=== PATIENT | female | born 1980 | race Caucasian/White ===

== ENCOUNTER 2024-05-12 08:01 | Outpatient (AMB) | payer OTHER, SELFPAY ==
--- OUTSIDE RECORDS SUMMARY | 2024-05-12 08:10 | XMS_ITS | Data Portability ---
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 She reports that about 2 weeks ago she developed a rash from contact with poison sandy. She was placed on prednisone 40mg daily for 7 days. She reports her rash improved and the 24hrs after stopping the prednisone it returned and was worse than before. She reports significant itching Exam: Pt is A/Ox3, non-toxic appearing, VSS, HRR, resp reg and unlabored on RA, lungs CTA bilat. pt noted to have extensive uticaria to bilat arms, torso and face. DDx considered, but not limited to: Rebound reaction: likely given history of sx and extensive uticaria noted to face, arms and torso cellulitis: unlikely, sx more consistent with contact dermatitis to poison sandy shingles: unlikely as rash is bilat and does not follow a dermatoma anaphalaxis: unlikely as pt's VSS, no angioedema noted, airway patent and intact Work up/Results: no further work up indicated at this time. Plan/Discussion: Pt appears to be having a rebound allergic reaction since coming off of the prednisone for significant contact dermatitis r/t poison sandy. Pt placed on a prednisone brooke and advised to use benadryl and pepcid to help as well. She has both at home, so orders not sent to the pharmacy. Patients PCP contacted and updated on patient status. Patient verbalized understanding of discharge instructions and when to follow up with PCP/911/ED as needed. Patient in agreement with current plan and treatment. Time On Scene with Patient: 00:17:11 anoop Not available 10/30/2019 17:40:51 Plan of Treatment Reminders Order Date Submit Date Provider Last Modified By Organization Details Last Modified Time Details Appointments None recorded. Lab None recorded. Referral None recorded. Procedures None recorded. Surgeries None recorded. Imaging None recorded. Medication Orders prednisone 10 mg tablet 2019 020 INTERFACE [id number], [address] , [place], [address], 0 15:53:41 Patient TargetsNo targets recorded. Patient Instructions Encounter Date Encounter Id Patient Instructions Last Modified By Organization Details Last Modified Time 10/30/2019 [id number] Thank you for yo ur visit with [facility] today. We cannot always find the exact cause of your symptoms during your initial visit. Please follow up with your primary care provider or specialist as needed to be rechecked or seek medical attention if your symptoms do not go away or get worse. If you develop any new or worsening symptoms and need after hours care, please go to nearest ER and/or call 911. If you have additional concerns or develop a change in your condition between 8am-10pm, please call [facility] at [phone] to help navigate your care. Please seek care or call your primary provider if the rash: 1. Worsens 2. Lasts longer than one week 3. Shows signs of local infection (redness, oozing, or swelling) 4. Occurs together with fever, chills, swollen glands, or other symptoms of infection 5. Looks dark purple or spotted 6. Occurs together with symptoms that suggest autoimmune disorder (recurring fever, malaise, fatigue, unexplained weight loss, or joint swelling) If you have additional concerns or develop a change in your condition between 8am-10pm, please call [facility] at [phone] to help navigate your care. anoop Not available 10/30/2019 15:54:32 Reason for Referral None Reported. Problems Name Problem SNOMED Code Status Onset Date Resolution Date Notes Provider Name and Address Organization Details Recorded Time Migraine [id number] Active 020 LESLEY DONG NP [address] [facility] [place], [place], [address] , [place] - [facility] 0 15:43:47 Problem Notes None recorded. Medical Equipment None Reported. Allergies No known drug allergies Medications Name Sig Start Date Stop Date Status Note LastModified by Organization Details LastModified Time cyclobenzap rine 10 mg tablet 10/29 completed Not Available Not Available Not Available prednisone 10 mg tablet 60mg daily for 3 days, 50mg daily for 3 days, 40mg daily for 3 days, 30mg daily for 3 days, 20mg daily for 3 days, 10mg daily for 3 days active Not Available Not Available No t Available sumatriptan 100 mg tablet active Not Available Not Available Not Available prednisone 20 mg tablet 10/29 completed Not Available Not Available Not Available etonogestre l 0.12 mg-ethinyl estradiol 0.015 mg/24 hr vaginal ring INSERT 1 RING VAGINALLY AND LEAVE IN PLACE FOR 3 WEEKS. TO BE USED CONTINUOU SLY active Not Available Not Available No t Available Vitals Date Recorded Respiratory rate Oxygen saturation Oxygen saturation in Arterial blood by Pulse oximetry Body temperature Heart rate Systolic blood pressure Diastolic blood pressure Provider Name and Address Organization Details Last Updated DateTime 0 18 /min 98 % 98 % 96.8 [degF] 110 /min 148 mm[Hg] 92 mm[Hg] Not Available [facility] 0 15:46:22 Social History Question Answer Notes LastModified by Organizat ion Details LastModified Time Tobacco Smoking Status Never Smoker LESLEY DONG, [address] [place], [address], [place] - [facility] 10/30/2019 15:44:14 Do You Have An Advance Directive? Yes Information not available 10/30/2019 What Is Your Code Status? Full Code Information not available 10/30/2019 Excessive Alcohol Or Drug Use No Information not available 10/30/2019 Sex: Unknown Functional Status None recorded. Mental Status None recorded. Family History Relationship Description Onset Age of this Age Resolved Age Notes LastModified by Organization Details LastModified Time Father Hypertensive disorder [email or web address] Not available 10/29 15:44:54 Medical History Condition Response Diabetes N Coronary Artery Disease N High Cholesterol N Cancer N Pulmonary Embolism N Stroke N Hypertension N Asthma N COPD N Depression N Kidney Disease N Gynecological HistoryNo gynecological history recorded. Obstetrics History GPAL:G 0 P 0 0 0 0 Past Encounters Encounter ID Performer Location Encounter Start Date Encounter Closed Date Diagnosis/Indication Diagnosis SNOMED-CT Code Diagnosis ICD10 Code Diagnosis Note [id number] LESLEY DONG NP [facility] [address] [place] [address] 10/30/2019 15:42:22 10/30/2019 17:50:59 Contact dermatitis caused by urushiol from [place] poison sandy 900339519 L25.5 Health Concerns Section Related Observation LastModified by Organization Detai ls LastModified Time None Recorded Concern Status LastModified by Organization Details LastModified Time None Recorded Advance Directives Directive Y: Payers Encounter Date Sequence Insurance Name Policy Number Policy Lindquist Covered Member ID Lindquist Member ID Guarantor Name 10/30/2019 1 [employer] [id number] Lesley Sparrow [id number] Lesley Sparrow Notes Date Note Type Note Provider Name and Address Organization Details Recorded Time 10/30/2019 text/html Pt reports she got posion sandy about 2 weeks ago. Was given 40mg of prednisone daily for 7 days. About 24hrs after stopping the prednisone she ended up with a worse rash all over her body that is extreamly itchy. She has washed everything that came in contact with the posion sandy, no one else in the house has it. Pets in the home have been bathed along with all of the pet's bedding. LESLEY DONG NP [address], [place], [address], [place] - [facility] 10/30/2019 17:42:21 OBGyn Episode No OBEpisode recorded.
[2024-05-12 08:12] VITALS: BP 140/96; PULSE 92; O2SAT 98
--- NOTE | 2024-05-12 08:12 | AM.OFFWIN_ITS ---
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 Patient Tobacco Use Status: Never used Tobacco Allergies No Known Allergies Allergy (Verified 05/12/24 08:19) Do you need a note to return to daycare/school/sports/work: No HPI HPI Comments 2 History of Present Illness0 Details 43 y/o female patient who presents to [facility] walk in clinic with c/o Neck Stiffness x 2 days. Denies trauma or injury to the neck. [facility] Medical History (Updated 05/12/24 @ 08:34 by Chrissy Figueroa NP) Cervicalgia Social History Patient Tobacco Use Status: Never used Tobacco Review of Systems Const All systems reviewed & are unremarkable except as noted in HPI and below Physical Exam Vital Signs: Last Vital Signs Pulse 92 05/12/24 08:12 BP 140/96 H 05/12/24 08:12 Pulse Ox 98 05/12/24 08:12 Oxygen Delivery Method Room Air 05/12/24 08:12 Const General: cooperative; No comfortable Orientation/consciousness: patient oriented x3 Neck Neck: Yes normal visual inspection, Yes no lymphadenopathy and Yes trachea midline Neck images: 2 1. TTP, no lumps or bumps. Limited ROM due to pain. Back/Spine/Pelvis Cervical Spine: cervical muscular tenderness, pain with cervical ROM and Cervical spine tenderness Neuro General: patient oriented x3 Assessment & Plan Assessment & Plan (1) Cervicalgia: Code(s): M54.2 - Cervicalgia Plan: Heat/Ice NSAIDs and Acetaminophen for pain relief Rest neck Prednisone Medications: New 2 acetaminophen 1,000 mg (2 x 500 mg) PO Q6H PRN 30 caps 0RF pain M54.2 - Cervicalgia cyclobenzaprine 10 mg PO BID 20 tabs 0RF M54.2 - Cervicalgia naproxen 500 mg PO BID 30 tabs 0RF M54.2 - Cervicalgia prednisone 20 mg PO DAILY 10 tabs 0RF M54.2 - Cervicalgia Coding Level of Care Code New Pt Level 4 (30460) Diagnoses Cervicalgia M54.2 Time Spent (min) 20
== END 2024-05-12 08:37 | disposition home or self-care (01) ==
PROVIDERS: PCP Nurse Practitioner Family; Visit Provider Nurse Practitioner Family
DX: M54.2 Cervicalgia (principal)